=== PATIENT | female | born 1965 | race Caucasian/White ===

== ENCOUNTER 2017-03-31 20:21 | Emergency (ER) | payer OTHER ==
[2017-03-31] MEDS ORDERED: Aspirin Low Dose CHEW TAB* 81 MG PO ONE (21:17)
[2017-03-31 21:52] LABS: Hematocrit 39 % (35-47); Hemoglobin 13.3 g/dl (12.0-16.0); Mean Corpuscular HGB Conc 34 g/dl (31-36); Mean Corpuscular Hemoglobin 29 pg (27-31); Mean Corpuscular Volume 86 fL (80-97); Mean Platelet Volume 9 um3 (7.4-10.4); Red Blood Count 4.58 10^6/ul (4.0-5.4); Red Cell Distribution Width 13 % (10.5-15); White Blood Count 7.3 10^3/ul (3.5-10.8)
[2017-03-31 22:07] LABS: Albumin 3.9 g/dL (3.2-5.2); BUN/Creatinine Ratio 18.3 (8-20); Calcium 8.9 mg/dL (8.6-10.3); EGFR African American 95.3 (>60); EGFR Non-African American 74.1 (>60); Globulin 2.5 g/dL (2-4); Potassium 3.7 mmol/L (3.5-5.0); Total Bilirubin 0.3 mg/dL (0.2-1.0); Total Protein 6.4 g/dL (6.4-8.9)
--- NOTE | 2017-03-31 22:09 | RAD ---
Indication: LEFT chest wall pain. Radiation to the neck and LEFT upper abdomen. Comparison: February 02, 2011 CT. Technique: Upright AP 2142 hours Report: Clear lungs and pleural spaces. Negative for pneumothorax. The heart, pulmonary vasculature, and mediastinal contours are unremarkable. Unremarkable osseous structures and soft tissue contours. IMPRESSION: No evidence for acute intrathoracic disease.
[2017-03-31] MEDS ORDERED: Iohexol 350* (CONTRAST) 500 ML MDV IV ONE (22:10)
[2017-03-31] MEDS ORDERED: diPHENhydraMINE IV* 50 MG/ML 1 ml VIAL (BENADRYL) SLOW PUSH ONE (22:28)
[2017-04-01] MEDS ORDERED: Naproxen TAB* 250 MG PO ONE (01:02)
[2017-04-01 01:10] VITALS: BP 113/66
--- NOTE | 2017-04-01 02:39 | ED ---
David Ayala Soohyun, scribed for Elli Chris MD on 03/31/17 at 2356 . Progress - Progress Note Progress Note: Signed out from Dr. Vasquez at shift change. Pt was seen by Dr. Chris at 2349 PM. Pt expresses that she is ready for discharge at this moment. She is informed that CTA is pending at this moment. SOB and CP are currently resolved. Pt recently came back from the [place]. Pt denies any fever, and also states she did not get any mosquito bites. - Results/Orders Results/Orders: CTA Chest/Thorax -- NEGATIVE. Second trop neg (0.01). Re-Evaluation - Re-Evaluation First Eval Re-Evaluation Time: 00:59 Comment: MD in room to update pt on repeat trop and CTA Chest/Thorax imaging results. Chest pain is reproducible left ant chest 4-5 interspace. Requests naproxen for pain. Heart and lungs, normal exam. Discussed GERD and costochondritis as possible etiologies and advised pt to follow up with her PCP definitely within one month. Course/Dx - Diagnoses Provider Diagnoses: Nonspecific chest pain, Prehypertension The documentation as recorded by the javieribDavid wolff Soohyun accurately reflects the service I personally performed and the decisions made by , Elli Chris MD.
--- NOTE | 2017-04-01 07:50 | RAD ---
Indication: Chest pain, shortness of breath. Contrast: Administered 64.0 ml of OMNIPAQUE 350 mgi/ml CTA of the chest was performed after IV contrast demonstration. Coronal and sagittal reconstructed images were obtained. The pulmonary arterial tree is well opacified. There are no filling defects present to suggest pulmonary embolus. The aorta demonstrates no evidence of aortic dissection. No aneurysmal dilatation is noted. The trachea and major bronchi appear patent. Lung huff demonstrate no evidence of pleural fluid, nodules or masses. No evidence of alveolar consolidation is noted. The inferior thyroid lobes demonstrates calcified nodule in the lower pole of the right lobe measuring up to 16 mm. No mediastinal or hilar adenopathy is identified. This nodule has remained stable since 2009. Visualized abdominal organs are unremarkable. IMPRESSION: No evidence of pulmonary embolus. No evidence of aortic dissection is noted.
--- NOTE | 2017-04-02 08:01 | ED ---
Sanford Ayala SooYoung, scribed for Aaron Vasquez MD on 03/31/17 at 2130 . HPI Chest Pain - HPI Summary HPI Summary: A 51 y/o F presents to ED with c/o anterior L CP onset at rest, has since resolved. CP described as heaviness, episode lasting approx. 20 mins. She's been having intermittent chest tightness for past week. Associated sx: epigastric abd pain, posterior neck pain, mild SOB, hot flashes, diaphoresis. Denies jaw pain, UE pain and numbness, LE edema. She says she had a previous episode similar to this in September, had blood work and thyroid tests done at [facility]. notes they had just come home from dinner. She ate BBQ chicken , loaded mashed potatoes. No PMHx: GERD. PCP is Dr. Osborn. No daily meds. Non- smoker. Occasional ETOH. FHx is negative for cardiac dz. Returned home from [facility] on 03/10, 4 hour flight, and [address] from airport. - History of Current Complaint Chief Complaint: EDChestPainROMI Time Seen by Provider: 03/31/17 21:17 Hx Obtained From: Patient, Family/Supervisor [place] Hx Last Menstrual Period: ablasion - 4 years ago Onset/Duration: Started Hours Ago, Atraumatic, Resolved Timing: Constant Initial Severity: Moderate Current Severity: None Pain Intensity: 0 Pain Scale Used: 0-10 Numeric Chest Pain Location: Diffuse, Left Anterior Character: Heaviness Associated Signs and Symptoms: Positive: Shortness of Breath, Diaphoresis, Abdominal Pain, Other: - pos: neck pain. Negative: Numbness, Tingling, Calf Pain/Swelling - Allergy/Home Medications Allergies/Adverse Reactions: Allergies Allergy/AdvReac Type Severity Reaction Status Date / Time Latex Allergy Hives Verified 03/31/17 20:24 Sulfa Drugs Allergy Hives Verified 03/31/17 20:24 PMH/Surg Hx/FS Hx/Imm Hx Previously Healthy: Yes Endocrine/Hematology History: Denies: Hx Diabetes, Hx Thyroid Disease Cardiovascular History: Denies: Hx Hypertension, Other Cardiovascular Problems/Disorders Respiratory History: Denies: Hx Asthma, Hx Chronic Obstructive Pulmonary Disease (COPD), Other Respiratory Problems/Disorders GI History: Denies: Hx Ulcer, Other GI Disorders Sensory History: Denies: Hx Contacts or Glasses, Hx Hearing Aid Opthamlomology History: Denies: Hx Contacts or Glasses - Surgical History Surgery Procedure, Year, and Place[place] [facility] [place] [facility] [place] Anesthesia Reactions: No - Immunization History Date of Tetanus Vaccine: UNKNOWN Date of Influenza Vaccine: UTD Infectious Disease History: No Infectious Disease History: Reports: Traveled Outside the [place] in Last 30 Days Denies: Hx Clostridium Difficile, Hx Hepatitis, Hx Human Immunodeficiency Virus (HIV) - Family History Known Family History: Negative: Cardiac Disease - Social History Occupation: Employed Full-time Lives: With Family Alcohol Use: Occasionally Alcohol Amount: 1-2 PER WEEK Hx Substance Use: No Substance Use Type: Reports: None Hx Tobacco Use: No Smoking Status (MU): Never Smoked Tobacco Have You Smoked in the Last Year: No Review of Systems Positive: Skin Diaphoresis, Other - pos: hot flashes. Negative: Fever, Chills Negative: Erythema Negative: Dental Pain - neg: jaw pain, Sore Throat Positive: Chest Pain Positive: Shortness Of Breath - mild. Negative: Cough Positive: Abdominal Pain. Negative: Vomiting, Nausea Negative: dysuria, hematuria Positive: Other - pos: neck pain. Negative: Edema Negative: Rash Neurological: Other - neg: dizziness Negative: Numbness All Other Systems Reviewed And Are Negative: Yes Physical Exam - Summary Physical Exam Summary: Constitutional: Well-developed, Well-nourished, Alert. (-) Distressed Skin: Warm, Dry HENT: Normocephalic; Atraumatic Eyes: Conjunctiva normal Neck: Musculoskeletal ROM normal neck. (-) JVD, (-) Stridor, (-) Tracheal deviation Cardio: Rhythm regular, rate normal, Heart sounds normal; Intact distal pulses; The pedal pulses are 2+ and symmetric. Radial pulses are 2+ and symmetric. (-) Murmur Pulmonary/Chest wall: Effort normal. (-) Respiratory distress, (-) Wheezes, (-) Rales Abd: Soft, (-) Tenderness, (-) Distension, (-) Guarding, (-) Rebound Musculoskeletal: (-) Edema Lymph: (-) Cervical adenopathy Neuro: Alert, Oriented x3 Psych: Mood and affect Normal Triage Information Reviewed: Yes Vital Signs On Initial Exam: Initial Vitals Temp Pulse Resp BP Pulse Ox 98.7 F 66 18 133/69 98 03/31/17 21:10 03/31/17 21:10 03/31/17 21:10 03/31/17 21:10 03/31/17 21:10 Vital Signs Reviewed: Yes - Ebony Coma Scale Coma Scale Total: 15 Diagnostics - Vital Signs Vital Signs Temp Pulse Resp BP Pulse Ox 03/31/17 21:10 98.7 F 66 18 133/69 98 - Laboratory Lab Results: Lab Results 03/31/17 03/31/17 03/31/17 Range/Units 21:42 21:42 21:42 WBC 7.3 (3.5-10.8) 10^3/ul RBC 4.58 (4.0-5.4) 10^6/ul Hgb 13.3 (12.0-16.0) g/dl Hct 39 (35-47) % MCV 86 (80-97) fL MCH 29 (27-31) pg MCHC 34 (31-36) g/dl RDW 13 (10.5-15) % Plt Count 196 (150-450) 10^3/ul MPV 9 (7.4-10.4) um3 Neut % (Auto) 65.4 (38-83) % Lymph % (Auto) 22.1 L (25-47) % Slope % (Auto) 9.6 H (1-9) % Eos % (Auto) 2.0 (0-6) % Baso % (Auto) 0.9 (0-2) % Absolute Neuts (auto) 4.8 (1.5-7.7) 10^3/ul Absolute Lymphs (auto) 1.6 (1.0-4.8) 10^3/ul Absolute Monos (auto) 0.7 (0-0.8) 10^3/ul Absolute Eos (auto) 0.1 (0-0.6) 10^3/ul Absolute Basos (auto) 0.1 (0-0.2) 10^3/ul Absolute Nucleated RBC 0 10^3/ul Nucleated RBC % 0 Sodium 137 (133-145) mmol/L Potassium 3.7 (3.5-5.0) mmol/L Chloride 107 (101-111) mmol/L Carbon Dioxide 26 (22-32) mmol/L Anion Gap 4 (2-11) mmol/L BUN 15 (6-24) mg/dL Creatinine 0.82 (0.51-0.95) mg/dL Est GFR ( Amer) 95.3 (>60) Est GFR (Non-Af Amer) 74.1 (>60) BUN/Creatinine Ratio 18.3 (8-20) Glucose 95 (70-100) mg/dL Lactic Acid 0.9 (0.5-2.0) mmol/L Calcium 8.9 (8.6-10.3) mg/dL Total Bilirubin 0.30 (0.2-1.0) mg/dL AST 14 (13-39) U/L ALT 9 (7-52) U/L Alkaline Phosphatase 50 (34-104) U/L Troponin I 0.00 (<0.04) ng/mL Total Protein 6.4 (6.4-8.9) g/dL Albumin 3.9 (3.2-5.2) g/dL Globulin 2.5 (2-4) g/dL Albumin/Globulin Ratio 1.6 (1-3) /03/11 Range/Units 00:04 WBC (3.5-10.8) 10^3/ul RBC (4.0-5.4) 10^6/ul Hgb (12.0-16.0) g/dl Hct (35-47) % MCV (80-97) fL MCH (27-31) pg MCHC (31-36) g/dl RDW (10.5-15) % Plt Count (150-450) 10^3/ul MPV (7.4-10.4) um3 Neut % (Auto) (38-83) % Lymph % (Auto) (25-47) % Slope % (Auto) (1-9) % Eos % (Auto) (0-6) % Baso % (Auto) (0-2) % Absolute Neuts (auto) (1.5-7.7) 10^3/ul Absolute Lymphs (auto) (1.0-4.8) 10^3/ul Absolute Monos (auto) (0-0.8) 10^3/ul Absolute Eos (auto) (0-0.6) 10^3/ul Absolute Basos (auto) (0-0.2) 10^3/ul Absolute Nucleated RBC 10^3/ul Nucleated RBC % Sodium (133-145) mmol/L Potassium (3.5-5.0) mmol/L Chloride (101-111) mmol/L Carbon Dioxide (22-32) mmol/L Anion Gap (2-11) mmol/L BUN (6-24) mg/dL Creatinine (0.51-0.95) mg/dL Est GFR ( Amer) (>60) Est GFR (Non-Af Amer) (>60) BUN/Creatinine Ratio (8-20) Glucose (70-100) mg/dL Lactic Acid (0.5-2.0) mmol/L Calcium (8.6-10.3) mg/dL Total Bilirubin (0.2-1.0) mg/dL AST (13-39) U/L ALT (7-52) U/L Alkaline Phosphatase (34-104) U/L Troponin I 0.01 (<0.04) ng/mL Total Protein (6.4-8.9) g/dL Albumin (3.2-5.2) g/dL Globulin (2-4) g/dL Albumin/Globulin Ratio (1-3) Result Diagrams: 03/31/17 21:42 03/31/17 21:42 Lab Statement: Any lab studies that have been ordered have been reviewed, and results considered in the medical decision making process. - Radiology CXR Xray Interpretation: No Acute Changes - Negative Radiology Interpretation Completed By: ED Physician - EKG 2030 Cardiac Rate: NL - 77 bpm EKG Rhythm: Sinus Rhythm ST Segment: Normal - no STEMI Re-Evaluation - Re-Evaluation First Eval Re-Evaluation Time: 00:59 Comment: in room to update pt on repeat trop and CTA Chest/Thorax imaging results. Chest pain is reproducible left ant chest 4-5 interspace. Requests naproxen for pain. Heart and lungs, normal exam. Discussed GERD and costochondritis as possible etiologies and advised pt to follow up with her PCP definitely within one month. Chest Pain Course/Dx - Course Course Of Treatment: Pt is a 51 y/o F presenting with c/o anterior L CP onset at rest, has since resolved. CP described as heaviness, episode lasting approx. 20 mins. She's been having intermittent chest tightness for past week. Associated sx: epigastric abd pain, posterior neck pain, mild SOB, hot flashes, diaphoresis. Denies jaw pain, UE pain and numbness, LE edema. She says she had a previous episode similar to this in September. notes they had just come home from dinner. She ate BBQ chicken, loaded mashed potatoes. No PMHx: GERD. PCP is Dr. Osborn. No daily meds. Non-smoker. Occasional ETOH. FHx is negative for cardiac dz. Returned home from [facility] on 03/10, 4 hour flight, and [address] from airport. EKG is SR at 77 bpm, no STEMI. CXR is negative. Pt is SO at shift change to Dr. Chris, pending CT/labs. Pt MAJO score is 0, perhaps outpatient management if 2nd trop is negative. - Diagnoses Provider Diagnoses: Nonspecific chest pain, Prehypertension Discharge - Discharge Plan Condition: Stable Disposition: HOME Discharge Disposition Comment: SO to Dr. Chris at shift change, see COA for dispo comments Patient Education Materials: Chest Pain (ED) Referrals: Ashwin Richardson MD [Primary Care Provider] - 2 Days The documentation as recorded by the Sanford macdonald SooYoung accurately reflects the service I personally performed and the decisions made by me, Aaron Vasquez MD.
== END 2017-04-01 01:11 | disposition home or self-care (01) ==
LOC: ED 20:21
DX: R07.9 Chest pain, unspecified (principal); R06.02 Shortness of breath; R10.9 Unspecified abdominal pain; M54.2 Cervicalgia; I10 Essential (primary) hypertension
CPT/HCPCS: 36415; 71010; 71275; 80053; 83605; 84484; 85025; 93005; 99282; A9270-GY; J1200; Q9967

== ENCOUNTER 2019-09-23 16:10 | Emergency (ER) | payer OTHER ==
--- OUTSIDE RECORDS SUMMARY | 2019-09-23 16:18 | XMS REPORT | Continuity of Care Document ---
:1965 External Reference #:[id number] Author Name Sarahi Powell O.D. Address [address] [place] [address] Care Team Providers Name Role Phone Dimas Guillaume M.D. 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 Onset: 11/14/2016 Social History Type Date Description Comments Sex Unknown ETOH Use Occasionally consumes alcohol Tobacco Use Start: Unknown Patient has never smoked Smoking Status Reviewed: 08/27/19 Patient has never smoked Allergies, Adverse Reactions, Alerts Active Allergies Reaction Severity Comments Date NKDA 11/09/2016 Latex 11/09/2016 Medications Active Medications SIG Qnty Indications Ordering Provider Date Artificial Tears as needed Unknown 0.2-0.2-1% Solution Immunizations Description No Information Available Vital Signs Description No Information Available Results Description No Information Available Procedures Description No Information Available Medical Devices Description No Information Available Encounters Description No Information Available Assessments Date Code Description Provider 08/27/2019 H43.813 Vitreous degeneration, bilateral Sarahi Powell O.D. 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 Plan of Treatment 08/27/2019 - Sarahi Powell O.D.H43.813 Vitreous degeneration, bilateralComments:You have a Posterior Vitreous Detachment. Please read the pamphlet that was given to you. If you have any changes in your floaters or flashing lights, please contact this office.D31.31 Benign neoplasm of right choroidComments:You have a nevus in your right eye. This is similar to a mole on your skin. Typically this will not change, but I will monitor it.H52.4 PresbyopiaComments:You have presbyopia. This is when the lens in your eye loses the ability to change focus, and happens as we age. A pair of reading glasses will help you see up close. Functional Status Description No Information Available Mental Status Description No Information Available Referrals Description No Information Available
--- OUTSIDE RECORDS SUMMARY | 2019-09-23 16:18 | XMS REPORT | Continuity of Care Document ---
:1965 External Reference #:[id number] Author Name Sarahi Powell O.D. Address [address] [place] [address] Care Team Providers Name Role Phone Dimas Guillaume M.D. - Family Medicine Care Team Information Sleeve Wheel Maker [phone] Etienne Oropeza M.D. 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 Onset: 11/14/2016 Social History Type Date Description Comments Sex Unknown ETOH Use Occasionally consumes alcohol Tobacco Use Start: Unknown Patient has never smoked Smoking Status Reviewed: 09/18/19 Patient has never smoked Allergies, Adverse Reactions, Alerts Active Allergies Reaction Severity Comments Date NKDA 11/09/2016 Latex 11/09/2016 Medications Active Medications SIG Qnty Indications Ordering Provider Date Artificial Tears as needed Unknown 0.2-0.2-1% Solution Immunizations Description No Information Available Vital Signs Description No Information Available Results Description No Information Available Procedures Date Code Description Status 08/27/2019 42326 Est Patient Comprehensive Exam Completed Medical Devices Description No Information Available Encounters Description No Information Available Assessments Date Code Description Provider 09/18/2019 H43.813 Vitreous degeneration, bilateral Sarahi Powell O.D. 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 08/27/2019 H43.813 Vitreous degeneration, bilateral Sarahi Powell O.D. 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 Plan of Treatment 09/18/2019 - Sarahi Powell O.D.H43.813 Vitreous degeneration, bilateralComments:You have a Posterior Vitreous Detachment. Please read the pamphlet that was given to you. If you have any changes in your floaters or flashing lights, please contact this office.Follow up:3-4 weeks recheck You can expect to have your eyes dilated at your next visit. If Dr. Powell orders any additional testing, it may require extra time. We recommend that you bring sunglasses, as dilation drops often make you light sensitive until they wear off. We always recommend you bring someone to drive you home if you are uncomfortable driving with your eyes dilated. If you have any questions before your next visit, feel free to call our office at .D31.31 Benign neoplasm of right choroidComments:You have a nevus in your right eye. This is similar to a mole on your skin. Typically this will not change, but I will monitor it. Functional Status Description No Information Available Mental Status Description No Information Available Referrals Description No Information Available
--- OUTSIDE RECORDS SUMMARY | 2019-09-23 16:18 | XMS REPORT | Summary of Care ---
:1965 Author Organization [facility] Address [address] [place] [address] Care Team Providers Name Role Phone Etienne Oropeza Primary Care Provider Reason for Visit Reason Comments Follow Up pt presents for follow up Encounter Details Date Type Department Care Team Description 09/15/2019 Office Visit [facility] Etienne Oropeza MD Iron deficiency anemia, unspecified iron deficiency anemia type (Primary Dx); Practice [address] [facility] Need for vaccination; [address] [place] [address] Stiffness of hand joint, [place] [address] [phone] Allergies Active Allergy Reactions Severity Noted Date Comments Cephalexin Rash 04/14/2009 Rash on Keflex plus Bactrim, not sure which is problem Latex Hives Medium 09/09/2013 Sulfa Antibiotics Rash 04/14/2009 Rash on Bactrim plus Keflex, not sure which is problem. documented as of this encounter (statuses as of 09/18/2019) Medications Medication Sig Dispensed Refills Start Date End Date Status Ferrous Sulfate (IRON) Take by mouth. 0 Active 325 (65 Fe) MG Oral Tab Polyethylene Glycol 3350 Take by mouth. 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 04/14/2009 Generalized anxiety disorder 05/10/2008 Lump or mass in breast 10/14/2007 Gastritis 10/14/2007 documented as of this encounter (statuses as of 09/18/2019) Immunizations Name Administration Dates Next Due Influenza (IM) Preservative Free 06/30/2019 TDAP Vaccine 09/15/2019 documented as of this encounter Social History Tobacco Use Types Packs/Day Years Used Date Never Smoker Smokeless Tobacco: Never Used Alcohol Use Drinks/Week oz/Week Comments Yes 1 Standard drinks or equivalent 1.0 OCCASIONAL Sex Assigned at Date Recorded Not on file Job Start Date Occupation Industry Not on file Not on file Not on file Travel History Travel Start Travel End No recent travel history available. documented as of this encounter Last Filed Vital Signs Vital Sign Reading Time Taken Comments Blood Pressure 102/62 09/15/2019 11:50 AM EST Pulse 74 09/15/2019 11:50 AM EST Temperature - - Respiratory Rate - - Oxygen Saturation 100% 09/15/2019 11:50 AM EST Inhaled Oxygen Concentration - - Weight 62.8 kg (138 lb 8 oz) 09/15/2019 11:50 AM EST Height 165.1 cm (5' 5") 09/15/2019 11:50 AM EST Body Mass Index 23.05 09/15/2019 11:50 AM EST documented in this encounter Progress Notes Etienne Oropeza MD - 09/15/2019 11:40 AM EST PATIENT: Marianne Tran : 1965 DATE OF SERVICE: 09/15/2019 CHIEF COMPLAINT: Chief Complaint Patient presents with Follow Up pt presents for follow up Subjective HISTORY OF PRESENT ILLNESS: Marianne Tran is a 54-y.o. female. Earlier in the year had a profound and symptomatic iron deficient anemia She had transfusion, CUG that only showed some gastric erosions. PPI made her feel worse so she is not taking it. She has been taking iron 1 a day but not with vitamin C. Her follow up labs showed she was trending in the right direction but the last labs show a drop in HCT to 30 , a drop in MCV and a drop in iron and ferritin. She not feel bad. No abd symptoms , nomenses . Does take Lopez back and body 2 days a week Past Medical History: Diagnosis Date Gastritis 10/14/2007 Gastritis 2019 EGD History of breast surgery ? hx left lu bx Lump or mass in breast 10/14/2007 R breast fibrocystic Microcytic anemia 2019 , first Family History Problem Relation Age of Onset Thyroid Father s/p radioiodine Breast Cancer Paternal Aunt age around 50 Current Outpatient Medications Medication Sig Ferrous Sulfate (IRON) 325 (65 Fe) MG Oral Tab Take by mouth. Polyethylene Glycol 3350 (MIRALAX PO) Take by mouth. No current facility-administered medications for this visit. Allergies Allergen Reactions Latex Hives Cephalexin Rash Rash on Keflex plus Bactrim, not sure which is problem Sulfa Antibiotics Rash Rash on Bactrim plus Keflex, not sure which is problem. Social History Socioeconomic History Marital status: Spouse name: Not on file Number of children: Not on file Years of education: Not on file Highest education level: Not on file Occupational History Not on file Social Needs Financial resource strain: Not on file Food insecurity Worry: Not on file Inability: Not on file Transportation needs Medical: Not on file Non-medical: Not on file Tobacco Use Smoking status: Never Smoker Smokeless tobacco: Never Used Substance and Sexual Activity Alcohol use: Yes Alcohol/week: 1.0 standard drinks Types: 1 Standard drinks or equivalent per week Comment: OCCASIONAL Drug use: No Sexual activity: Yes Partners: Male Lifestyle Physical activity Days per week: Not on file Minutes per session: Not on file Stress: Not on file Relationships Social connections Talks on phone: Not on file Gets together: Not on file Attends amish service: Not on file Active member of club or organization: Not on file Attends meetings of clubs or organizations: Not on file Relationship status: Not on file Intimate partner violence Fear of current or ex partner: Not on file Emotionally abused: Not on file Physically abused: Not on file Forced sexual activity: Not on file Other Topics Concern Back Care Not Asked Bike Helmet Not Asked Blood Transfusions No Caffeine Concern No Exercise Not Asked Hobby Hazards No International Travel Not Asked Service Not Asked Occupational Exposure No Seat Belt Not Asked Self-Exams Not Asked Sleep Concern Not Asked Special Diet Not Asked Stress Concern Yes Weight Concern Not Asked Social History Narrative . Pets: 1 dog/1 cat/ 1 turtle No birds.Routine exercise: gym 5x/week. REVIEW OF SYSTEMS: ELLIOTT does have stiff hands in the AM x 1 hour and tingle Objective PHYSICAL EXAM: VITALS: BP 102/62 (BP Location: Right arm, Patient Position: Sitting) | Pulse 74 | Ht 5' 5" (1.651 m) | Wt 138 lb 8 oz (62.8 kg) | SpO2 100% | BMI 23.05 kg/m Body mass index is 23.05 kg/m. Physical Exam Vitals signs reviewed. Constitutional: Appearance: She is not ill-appearing. Cardiovascular: Rate and Rhythm: Normal rate and regular rhythm. Pulmonary: Effort: Pulmonary effort is normal. Breath sounds: Normal breath sounds. Abdominal: General: There is no distension. Tenderness: There is no abdominal tenderness. Psychiatric: Mood and Affect: Mood normal. tinels negative and thoracic outlet negative ASSESSMENT / IMPRESSION: ICD-9-CM ICD-10-CM 1. Iron deficiency anemia, unspecified iron deficiency anemia type at this point not sure of the cause . I spoke to GI and have requested a capsule study . While trying to figure out the etiology will also give IV iron since oral iron she not seem to be absorbing 280.9 D50.9 2. Need for vaccination due for tdap today V05.9 Z23 [place] TET, DIP & ACEL PERTUSSIS(DX Z23) 3. Stiffness of hand joint, unspecified laterality- uncertain etiology No obvious link with her anemia Last year had some inflammatory tests come back normal . For now will concentrate on the anemia andwait on rheumatologic or neuro workup 719.54 M25.649 Plan venofir 200mg mix in NS Over 1 hour . 5 x in 2 weeks Author: Etienne Oropeza MD 09/15/2019 21:56 documented in this encounter Plan of Treatment Date Type Specialty Care Team Description 09/22/2019 Gastro Nurse/clinical support Gastroenterology 10/09/2019 Ancillary Procedure Radiology Health Maintenance Due Date Last Done Comments PAP SMEAR 06/17/2016 06/17/2013, 04/19/2008 ZOSTER IMMUNIZATION SERIES 2017 (1 of 2) MAMMOGRAM (SCREENING) 07/02/2019 07/02/2018, 11/01/2016, 11/01/2016, Additional history exists DEPRESSION SCREENING 04/22/2020 04/22/2019 LIPID DISORDER SCREENING 10/10/2021 10/10/2016, 10/02/2016, 04/21/2008 Colonoscopy 05/12/2029 05/12/2019 DTaP/Tdap/Td Vaccines (2 - 09/15/2029 09/15/2019 Tdap) INFLUENZA VACCINE Completed 06/30/2019 HEPATITIS A IMMUNIZATION Aged Out No longer eligible SERIES based on patient's age to complete this topic HPV IMMUNIZATION SERIES Aged Out No longer eligible based on patient's age to complete this topic MENINGOCOCCAL VACCINE IMM Aged Out No longer eligible based on patient's age to complete this topic PNEUMOCOCCAL 0-64 YRS Aged Out No longer eligible based on patient's age to complete this topic documented as of this encounter Results Not on filedocumented in this encounter Visit Diagnoses Diagnosis Need for vaccination Need for prophylactic vaccination and inoculation against unspecified single disease Iron deficiency anemia, unspecified iron deficiency anemia type Stiffness of hand joint, unspecified laterality documented in this encounter Insurance Payer Benefit Plan / Subscriber ID Effective Dates Phone Address Type Group [employer]CIAL AETNA [facility] xxxxxxxxxx 2012-Present [employer] Guarantor Name Account Type Relation to Date of Phone Billing Patient Address Marianne Tran Personal/Family 1965 [address] (Home) [place], [place] [phone] (Work) documented as of this encounter
[2019-09-23] MEDS ORDERED: Ibuprofen TAB* 600 MG PO ONE (17:40)
--- NOTE | 2019-09-23 17:41 | UC ---
Lower Extremity/Ankle HPI - HPI Summary HPI Summary: 54-year-old female presenting with left ankle pain after she inverted it while working out at the gym approximately 2 hours ago. Patient states she was not able to bear weight after and is unable to walk on it. Notes numbness in the foot. Decreased range of motion due to pain. Denies bruising. Notes some lateral swelling. Denies prior injury to the ankle. - History of Current Complaint Chief Complaint: UCGeneralIllness Stated Complaint: ANKLE INJURY Hx Last Menstrual Period: ablasion - 4 years ago Pain Intensity: 8 - Allergies/Home Medications Allergies/Adverse Reactions: Allergies Allergy/AdvReac Type Severity Reaction Status Date / Time MS Latex [Latex] Allergy Hives Verified 09/23/19 16:26 MS Sulfa Drugs [Sulfa Drugs] Allergy Hives Verified 09/23/19 16:26 Home Medications: Home Medications NK [No Home Medications Reported] 09/23/19 [History Confirmed 09/23/19] PMH/Surg Hx/FS Hx/Imm Hx - Surgical History Surgical History: Yes Surgery Procedure, Year, and Place: bunionectomy, 1995, [facility] [place]. c section 1997, [facility] [place]. HYSTERECTOMY - Family History Known Family History: Negative: Cardiac Disease - Social History Alcohol Use: Occasionally Alcohol Amount: 1-2 PER WEEK Substance Use Type: None Smoking Status (MU): Never Smoked Tobacco Have You Smoked in the Last Year: No - Immunization History Most Recent Influenza Vaccination: 2012 Most Recent Tetanus Shot: 2010 Most Recent Pneumonia Vaccination: NEVER Review of Systems All Other Systems Reviewed And Are Negative: No Constitutional: Positive: Negative Skin: Positive: Negative. Negative: Bruising Respiratory: Positive: Negative Cardiovascular: Positive: Negative Musculoskeletal: Positive: Arthralgia - L ankle, Decreased ROM - L ankle d/t pain, Edema - lateral L ankle Neurological: Positive: Numbness - L foot Physical Exam - Summary Physical Exam Summary: Vital Signs Reviewed: Yes A+Ox3, no distress Eyes: Conjunctiva Clear ENT: Hearing grossly normal neck: supple Respiratory: Positive: No respiratory distress, No accessory muscle use Cardiovascular: skin color reflect adequate perfusion Musculoskeletal Exam: +TTP with anterolateral L ankle, decreased dorsiflexion and inversion due to pain, sensation grossly intact, mild lateral edema, strong pedal pulse Neurological: Positive: Alert Psychological: Positive: Normal Response To Family, age appropriate behavior Skin: Positive: no rash, no erythema, no ecchymosis Vital Signs: Initial Vital Signs Temp 98.4 F 09/23/19 16:20 Pulse 77 09/23/19 16:20 Resp 18 09/23/19 16:20 BP 140/80 09/23/19 16:20 Pulse Ox 100 09/23/19 16:20 Diagnostics - Radiology L ankle Radiology Interpretation Completed By: Radiologist Summary of Radiographic Findings: REPORT AND IMPRESSION: #. Negative for fracture or osteochondral lesion. #. Normal articular alignment and preserved joint spaces. #. Mild soft tissue swelling over the lateral malleolus. Lower Extremity Course/Dx - Course Course Of Treatment: Discussed negative radiographs of patient. Instructed to continue with rest, ice, elevation. Private patient with Saurabh wrap, ankle splint, and crutches. Instructed to follow-up with PCP or orthopedics if pain does not resolve within 1-2 weeks. Patient voiced understanding and agreed with the treatment plan. - Differential Dx/Diagnosis Provider Diagnosis: Left ankle sprain Discharge ED - Sign-Out/Discharge Documenting (check all that apply): Patient Departure All imaging exams completed and their final reports reviewed: Yes - Discharge Plan Condition: Stable Disposition: HOME Patient Education Materials: Ankle Sprain (ED) Referrals: [facility] [Outside] Etienne Oropeza MD [Primary Care Provider] - If Needed Additional Instructions: As discussed, the xrays of your ankle did not show any fractures. Rest, ice, elevate, and use the saurabh wrap, splint and crutches to help alleviate pain and swelling. You may also take over the counter pain medications as directed. Refrain from strenuous physical activity until pain has fully resolved. Follow up with your primary care provider or sports medicine listed below if pain persists. - Billing Disposition and Condition Condition: STABLE Disposition: Home
[2019-09-23 18:28] VITALS: BP 125/72
== END 2019-09-23 18:27 | disposition home or self-care (01) ==
LOC: UCEAST 16:10
DX: S93.402A Sprain of unspecified ligament of left ankle, initial encounter (principal); Z91.040 Latex allergy status; Z88.2 Allergy status to sulfonamides; X50.0XXA Overexertion from strenuous movement or load, initial encounter; Y93.89 Activity, other specified; Y92.39 Other specified sports and athletic area as the place of occurrence of the external cause
CPT/HCPCS: 99213; A9270-GY; G0463